=== PATIENT | female | born 1965 | race African-American/Black ===

== ENCOUNTER → 2016-08-23 | Outpatient (CLI) | payer MEDICAID | LOC: FIMAGING 07:17 | PROVIDERS: ATTEND Physician Assistant | DX: N92.1 Excessive and frequent menstruation with irregular cycle (principal); N85.9 Noninflammatory disorder of uterus, unspecified; D25.9 Leiomyoma of uterus, unspecified ==

== ENCOUNTER 2017-02-21 13:44 | Day surgery (SDC) | payer MEDICAID ==
[2017-02-21] MEDS ORDERED: LIDOCAINE 1% 2 ML INJ ID PRN (14:07)
[2017-02-21] MEDS ORDERED: LR 1,000 ML IV ONE (14:07)
[2017-02-21 14:37] VITALS: PULSE 84
--- NOTE | 2017-02-21 14:50 | PDANEPAE ---
ANE History of Present Illness 51 yo for colonoscopy ANE Past Medical History - Cardiovascular History Hx Hypertension: No Hx Arrhythmias: No Hx Chest Pain: No Hx Coronary Artery / Peripheral Vascular Disease: No Hx CHF / Valvular Disease: No Hx Palpitations: No - Pulmonary History Hx COPD: No Hx Asthma/Reactive Airway Disease: No Hx Recent Upper Respiratory Infection: No Hx Oxygen in Use at Home: No Hx Sleep Apnea: No Sleep Apnea Screening Result - Last Documented: Negative - Neurologic History Hx Cerebrovascular Accident: No Hx Seizures: No Hx Dementia: No - Endocrine History Hx Diabetes: No - Renal History Hx Renal Disorders: No - Liver History Hx Hepatic Disorders: No - Neurological & Psychiatric Hx Hx Neurological and Psychiatric Disorders: Yes Neurological / Psychiatric History Comment: DEPRESSION - Cancer History Hx Cancer: No - Congenital Disorder History Hx Congenital Disorders: No - GI History Hx Gastrointestinal Disorders: No - Other Health History Other Health History: INSOMNIA - Chronic Pain History Chronic Pain: No - Surgical History Prior Surgeries: THROAT SURG AGE 6 ANE Review of Systems Review of Systems: - Exercise capacity METS (RN): 4 METS ANE Patient History - Allergies Allergies/Adverse Reactions: Penicillins Allergy (Verified 02/11/17 12:16) Hives - Home Medications Home medications: home medication list seen and reviewed Home Medications: Birthcontrol DAILY06 02/11/17 [Last Taken 02/20/17] DULoxetine DAILY06 02/11/17 [Last Taken 02/19/17] MAGNESIUM DAILY 02/11/17 [Last Taken 02/19/17] ZOLPIDEM TARTRATE HS 02/11/17 [Last Taken 02/20/17] - NPO status NPO Status: no food or drink >8 hours NPO Since - Liquids (Date): 02/21/17 NPO Since - Liquids (Time): 12:15 NPO Since - Solids (Date): 02/20/17 NPO Since - Solids (Time): 07:30 - Anes Hx Anes Hx: no prior problems - Smoking Hx Smoking Status: Never smoked - Family Anes Hx Family Hx Anesthesia Complications: NEG ANE Labs/Vital Signs - Vital Signs Blood Pressure: 108/68 Heart Rate: 84 Respiratory Rate: 16 O2 Sat (%): 97 Height: 5 ft 7 in Weight: 54.431 kg ANE Physical Exam - Airway Neck exam: FROM Mallampati Score: Class 2 Mouth exam: normal dental/mouth exam - Pulmonary Pulmonary: no respiratory distress - Cardiovascular Cardiovascular: regular rate and rhythym - ASA Status ASA Status: II ANE Anesthesia Plan Anesthesia Plan: GA with mask
--- NOTE | 2017-02-21 14:51 | PDGENHP ---
History & Physical Chief Complaint: screening History of Present Illness: 51 year old female presents for screening colonoscopy. Pertinent Past, Social, Family History: PMHx: depression. FaMHx: no crc or polyps. Relevant Physical Exam: HEENT: anicteric. CV: RRR +s1s2. Lungs: CTAB. Abd: soft, nt, + bs. NO guarding or rebound. Cardiorespiratory Assessment: ASA 2
[2017-02-21] MEDS ORDERED: INDOMETHACIN 50 MG SUPP PR PRN (14:52)
[2017-02-21] MEDS ORDERED: PROPOFOL/EMULSION 500 MG/50 ML BOTTLE IV ONE (14:52)
[2017-02-21] MEDS ORDERED: NS 500 ML IV SCH (15:00)
[2017-02-21] MEDS ORDERED: PROPOFOL 200 MG/20 ML VIAL ONE (15:19)
[2017-02-21] MEDS ORDERED: NALOXONE HCL 0.4 MG/ML INJ IVP PRN (15:20)
--- NOTE | 2017-02-21 15:30 | POSTANESTH ---
Post Anesthetic Evaluation Cardiovascular Status: Normal, Stable Respiratory Status: Normal, Stable Level of Consciousness/Mental Status: Can Participate in Eval Pain Control: Adequate, Prn Tx Ordered Nausea/Vomiting Control: Adequate, Prn Tx Ordered Complications Possibly Related to Anesthesia: None Noted
--- NOTE | 2017-02-21 15:33 | GIREPORT ---
[facility] - Endoscopy Department Patient Name: Lina Francois Procedure Date: 02/21/2017 2:44 PM Patient Type: Outpatient Attending MD/ ER Physician: Lino Perkins MD Procedure: Colonoscopy Indications: Screening for colorectal malignant neoplasm Patient Profile: 51 year old female presents for screening colonoscopy. Providers: Lino Perkins MD Medicines: Monitored Anesthesia Care Complications: No immediate complications. Description of Procedure: After obtaining informed consent, the scope was passed under direct vis ion. Throughout the procedure, the patient's blood pressure, pulse, and oxyg en saturations were monitored continuously. The Colonoscope was introduced through the anus and advanced to the cecum, identified by appendiceal orifice and ileocecal valve. The colonoscopy was performed without difficulty. The patient tolerated the procedure well. The quality of th e bowel preparation was good. The ileocecal valve, appendiceal orifice, a nd rectum were photographed. Findings: The perianal and digital rectal examinations were normal. Pertinent negatives include no palpable rectal lesions. The entire examined colon appeared normal. Estimated Blood Loss: Estimated blood loss: none. Post Op Diagnosis: - The entire examined colon is normal. - No specimens collected. Recommendation: - Discharge patient to home (with escort). - Resume previous diet. - Continue present medications. - Repeat colonoscopy in 10 years for screening purposes. - Thank you for allowing me jaswinder participate in the care of your patient . Attending Participation: I personally performed the entire procedure. Lino Perkins MD Lino Perkins MD 02/21/2017 3:33:18 PM This report has been signed electronicallyLino Perkins MD Number of Addenda: 0 Note Initiated On: 02/21/2017 2:44 PM Total Procedure Duration Time 0 hours 17 minutes 56 seconds [email or web address]
[2017-02-21 15:43] VITALS: TEMP 98.2
[2017-02-21 15:49] VITALS: RESP 16
[2017-02-21 16:30] VITALS: BP 114/65; O2SAT 100
== END 2017-02-21 16:35 | disposition home or self-care (01) ==
LOC: FSGY 13:44
PROVIDERS: ATTEND Internal Medicine Gastroenterology
PROC: 0DJD8ZZ Inspection of Lower Intestinal Tract, Via Natural or Artificial Opening Endoscopic (ICD-10-PCS; principal; 2017-02-21 15:30)
DX: Z12.11 Encounter for screening for malignant neoplasm of colon (principal); F32.9 Major depressive disorder, single episode, unspecified
CPT/HCPCS: J2704